=== PATIENT | female | born 1955 | race Caucasian/White ===

== ENCOUNTER → 2016-12-04 | Outpatient (CLI) | payer BC ==
[~2016-12-04] MED LIST: ASPI-860 PO; LEVO150T47 PO; MELO-249 PO; ONDA4TAB11 PO; SMV20T PO
--- NOTE | 2016-12-04 09:14 | Diagnostic Imaging Report ---
INDICATION: Followup right knee pain. DISCUSSION: Two views of the right knee were obtained, comparison 01/14/2016. Total right knee arthroplasty is stable. No hardware complications. No acute osseous abnormality. Alignment is anatomic. No effusion. Soft tissues are unremarkable. IMPRESSION: 1. Stable total right knee arthroplasty, no hardware complications. Dictated by: Dictated on workstation # [id number]
== END ==
LOC: RAD 07:01
PROVIDERS: ATTEND Orthopaedic Surgery
DX: Z96.651 Presence of right artificial knee joint (principal)
CPT/HCPCS: 73560